=== PATIENT | female | born 1940 | race Caucasian/White ===

== ENCOUNTER → 2016-10-24 | Outpatient (CLI) | payer OTHER, MEDICARE ==
[~2016-10-24] MED LIST: ALLOPURINOL100 MG PO; ASPIRIN E.C. 8181 MG PO; ATENOLOL; BACTRIM DS 8001 TAB PO; BIO-TN500 MCG PO; CARDENE 20MG CA20 M1 PO; CARDENE PO; CARDI-OMEGA1000 MG PO; CIPRO 250MG TA250 MG PO; COLACE 100100 MG/CAP PO; CORDARONE200 MG/TAB PO; CRANBERRY1 CAP PO; DARVOCET N; DEMADEX; ECOTRIN325 MG PO; ENULOSE10 GM/151 PO; FAMVIR 500500 MG/TAB PO; FAMVIR125 MG PO; FAMVIR250 MG PO; FISH OIL CONC1000 MG PO; FOLIC ACID 11 MG/TA1 PO; FUROSEMIDE; GABAPENTIN; HUMULIN 70/3100 U/ML IJ; INSHUMULIN7030 SQ; IRON TABLETS325 MG PO; KLONOPIN 0.5MG0.5 MG PO; KLOR-CON 1010 MEQ; LANTUS SOLOS100 U/ML SQ; LASIX 20MG TABL20 MG PO; LASIX 80MG TABL80 MG PO; LEXAPRO 10MG10 MG PO; LOTENSIN20 MG PO; MACROBID 1100 MG/CAP PO; MIRALAX 255 GM255 GM PO; NEURONTIN100 MG/CAP PO; NEURONTIN300 MG/CAP PO; NITROSTAT0.6 MG SL; NORCO 325 MG-51 TAB; NORCO 325 MG-51 TAB PO; NORVASC 10MG10 MG PO; NORVASC 5MG5 MG/TAB PO; NOVOLOG 100U100 U/M1 SQ; NULECIT62.5 MG/5 IV; PERCOCET 325 MG1 TA2 PO; PHARMASSURE ZIN50 MG PO; PREDNISONE10 MG PO; PRILOSEC 20MG20 MG PO; SENOKOT8.6 MG PO; TENORMIN 5050 MG/TAB PO; TYLENOL 325MG325 MG PO; ULTRAM 50MG TAB50 MG PO; VICOPROFEN 7.51 TAB PO; VITAMIN C500 MG PO; VITAMIN D 50,1.25 MG PO; VITAMIN D31000 I1 PO; ZAROXOLYN5 MG PO; ZEBETA 5MG5 MG PO; ZINC SO4; ZINC50 MG PO; ZOFRAN8 MG PO; ZYLOPRIM 100MG100 MG PO; ZYLOPRIM 300MG300 MG PO
[2016-10-24 18:41] LABS: CALCIUM 8.8 mg/dL (8.4-10.2); CREATININE, serum 2.65 mg/dL (0.52-1.25); POTASSIUM 4.1 mmol/L (3.4-5.0)
== END ==
LOC: ZCOL.LAB 18:21
DX: N18.6 End stage renal disease (principal)

== ENCOUNTER → 2017-01-10 | Outpatient (CLI) | payer MEDICARE ==
[2017-01-10 23:33] LABS: PH 7 (5-8); SQUAMOUS EPITHELIAL 0-2 /hpf; URINE APPEARANCE Clear; URINE BACTERIA None Seen /hpf; URINE BILIRUBIN Negative (NEGATIVE); URINE BLOOD Negative (NEGATIVE); URINE COLOR Yellow; URINE GLUCOSE Negative (NEGATIVE); URINE KETONE Negative (NEGATIVE); URINE RBC 0-2 /hpf; URINE UROBILINOGEN Negative (NEGATIVE); URINE WBC 0-2 /hpf
== END ==
LOC: ZCOL.LAB 22:36
DX: Z02.89 Encounter for other administrative examinations (principal)

== ENCOUNTER → 2017-01-10 | Outpatient (CLI) | payer MEDICARE | LOC: ZCOL.LAB 16:49 | DX: Z02.89 Encounter for other administrative examinations (principal) ==

== ENCOUNTER 2017-01-25 05:06 | Emergency (ER) | payer MEDICARE ==
[~2017-01-25] VITALS: Ht 152.4 cm; Wt 69.2 kg
[~2017-01-25 05:06] MED LIST changes: -KLONOPIN 0.5MG0.5 MG PO; -ZOFRAN8 MG PO
[2017-01-25 05:13] VITALS: TEMP 98.2
[2017-01-25] MEDS ORDERED: KLONOPIN 0.5MG0.5 MG PO (05:44)
[2017-01-25] MEDS ORDERED: ZOFRAN8 MG PO (05:45)
[2017-01-25 05:52] LABS: BASO % 0.5 % (0.0-2.0); EOS # 0.1 (0.0-0.7); EOS % 1.2 % (0-4.0); HEMATOCRIT 37.8 % (37.0-47.0); LYMPH % 22.2 % (20.0-51.0); MEAN CELL VOLUME 100 fl (80.0-100.0); MEAN CORPUSCULAR HEMOGLOBIN 32 pg (27.0-31.0); MEAN CORPUSCULAR HGB CONC 32 g/dl (33.0-37.0); MEAN PLATELET VOLUME 11.6 fl (7.4-10.4); MONO # 0.2 (0.1-0.6); MONO % 4.9 % (1.7-9.3); PLATELET COUNT 131 K/mm3 (130-400); RED BLOOD COUNT 3.79 M/mm3 (4.10-5.30); REDCELL DISTRIBUTION WIDTH-CV 13.3 % (11.5-14.5); WHITE BLOOD COUNT 4.3 K/mm3 (4.8-10.8)
[2017-01-25 05:59] LABS: ADJUSTED CALCIUM 9.1 mg/dL (8.4-10.2); ALBUMIN 3.6 gm/dL (3.5-5.0); BILIRUBIN,TOTAL 0.9 mg/dL (0.0-1.0); CALCIUM 8.8 mg/dL (8.4-10.2); CREATININE, serum 2.32 mg/dL (0.52-1.25); POTASSIUM 4.7 mmol/L (3.4-5.0); TOTAL PROTEIN 6.9 gm/dL (6.4-8.2)
[2017-01-25 06:20] VITALS: BP 188/96; PULSE 75
== END 2017-01-25 08:05 | disposition home or self-care (01) ==
LOC: COL.ER 05:06
PROVIDERS: Emergency Medicine
DX: R10.84 Generalized abdominal pain (principal); C64.9 Malignant neoplasm of unspecified kidney, except renal pelvis; C79.9 Secondary malignant neoplasm of unspecified site; E11.22 Type 2 diabetes mellitus with diabetic chronic kidney disease; I12.9 Hypertensive chronic kidney disease with stage 1 through stage 4 chronic kidney disease, or unspecified chronic kidney disease; N18.9 Chronic kidney disease, unspecified; I25.10 Atherosclerotic heart disease of native coronary artery without angina pectoris; D64.9 Anemia, unspecified; Z95.1 Presence of aortocoronary bypass graft; Z51.5 Encounter for palliative care; G89.4 Chronic pain syndrome
CPT/HCPCS: J1170; J2405; J3010